=== PATIENT | male | born 1985 | race Caucasian/White ===

== ENCOUNTER → 2022-09-17 | Outpatient (CLI) | payer OTHER, SELFPAY ==
--- NOTE | 2022-09-17 14:00 | VAS_PTH ---
PATIENT: SUSAN PINEDA LOC: [facility]#:[id number] AGE/SX: 36/M ROOM: RE09/17/[address]: Dr. Raul Sage MD : [id number] BED: DIS: 09/17/2022 SPEC #: [id number] RECD: 09/17/22 15:16 STATUS: SABINE HOLCOMB #: [id number] JOSE: 09/17/22 14:[address]: Raul Sage DEPT: SURGICAL PATHOLOGY RECD BY: Pamela Phelan Tissues: A - Vas deferens, NOS B - Vas deferens, NOS Procedures: Surgery Specimen Level II HEADER OPERATION: Bilateral partial vasectomy PRE-OP DIAGNOSIS: Sterilization TISSUE SUBMITTED: A ? Left vas deferens, B ? Right vas deferens MICROSCOPIC DIAGNOSIS A. Left vas deferens, partial vasectomy: Completely transected segment of vas deferens, no pathologic diagnosis. B. Right vas deferens, partial vasectomy: Completely transected segment of vas deferens, no pathologic diagnosis. TERENCE:amrita 09/19/2022 MICROSCOPIC DESCRIPTION Slides are reviewed. GROSS DESCRIPTION A - Received is one container designated left vas deferens. The specimen consists of a tubular segment of rodriguez soft tissue measuring 0.7 cm in length and 0.2 cm in diameter. The specimen is sectioned and submitted entirely in one cassette. B - Received is one container designated right vas deferens. The specimen consists of a tubular segment of rodriguez soft tissue measuring 0.7 cm in length and 0.2 cm in diameter. The specimen is sectioned and submitted entirely in one cassette. / TERENCE:amrita 09/18/2022 TC:4 CPT: 39932 x2
== END | disposition home or self-care (01) ==
PROVIDERS: Referring Provider Surgery; Visit Provider Surgery
DX: Z30.2 Encounter for sterilization (principal)
CPT/HCPCS: 88302

== ENCOUNTER → 2022-10-28 | Outpatient (CLI) | payer OTHER, SELFPAY ==
[2022-10-28 12:14] LABS: Semen Analysis Post Vas PRELIMINARY PRESENT
[2022-10-28 12:58] LABS: Pathologist Review Reviewed
== END | disposition home or self-care (01) ==
LOC: LAB 09:01
PROVIDERS: PCP Family Medicine; Referring Provider Surgery; Visit Provider Surgery
DX: Z30.2 Encounter for sterilization (principal)
CPT/HCPCS: 89321

== ENCOUNTER → 2022-11-11 | Outpatient (CLI) | payer OTHER, SELFPAY ==
[2022-11-11 10:02] LABS: Semen Analysis Post Vas ABSENT
[2022-11-12 12:44] LABS: Pathologist Review Reviewed
== END | disposition home or self-care (01) ==
LOC: LAB 08:50
PROVIDERS: PCP Family Medicine; Referring Provider Surgery; Visit Provider Surgery
DX: Z30.2 Encounter for sterilization (principal)
CPT/HCPCS: 89321

== ENCOUNTER → 2022-11-16 | Outpatient (CLI) | payer OTHER, SELFPAY ==
[2022-11-16 09:44] LABS: Semen Analysis Post Vas ABSENT
[2022-11-19 12:02] LABS: Pathologist Review Reviewed
== END | disposition home or self-care (01) ==
LOC: LABSPEC 08:06
PROVIDERS: PCP Family Medicine; Referring Provider Surgery; Visit Provider Surgery
DX: Z30.09 Encounter for other general counseling and advice on contraception (principal)
CPT/HCPCS: 89321